=== PATIENT | female | born 1950 | race Caucasian/White ===

== ENCOUNTER 2018-06-02 08:40 | Day surgery (SDC) | payer MEDICARE, BC ==
[2018-06-02] MEDS ORDERED: Lactated Ringers 1,000 ML IV SCH (09:00)
[2018-06-02] MEDS ORDERED: Propofol 200 MG/20 ML SDV ONE (09:47)
[2018-06-02] MEDS ORDERED: fentaNYL 100 MCG/2 ML SDV ONE (09:47)
[2018-06-02] MEDS ORDERED: Midazolam 1 MG/ML 2 ML SDV ONE (09:47)
--- NOTE | 2018-06-02 13:53 | OR ---
DATE OF PROCEDURE: 06/02/2018 PREOPERATIVE DIAGNOSIS: Father had rectal cancer. POSTOPERATIVE DIAGNOSES: 1. Unremarkable colonoscopy. 2. Father had rectal cancer. PROCEDURE: Colonoscopy to the cecum. SURGEON: Austyn Renteria MD ANESTHESIA: IV anesthesia with monitored anesthesia care. INDICATION: This 68-year-old white female is referred for a colonoscopy. Her father had rectal cancer. She says her last colonoscopic exam was done about 10 years ago. She is scheduled to have a bladder repair at [facility], and they wanted her to have a colonoscopy before they do this. I counseled her for the procedure, including risks and alternatives, and she gave her informed consent to proceed. DESCRIPTION OF PROCEDURE: The patient was placed in the left lateral decubitus position. IV anesthesia was administered by the Anesthesia Service. Rectal exam showed no masses. The flexible video Olympus colonoscope was introduced through her anus, up her rectum and out her colon all the way to the cecum. Once the cecum was reached, the scope was slowly withdrawn, examining the mucosa throughout. No mucosal abnormalities were noted. The scope was retroflexed in the rectum with the distal rectum appearing unremarkable. The scope was straightened and removed. She tolerated the procedure well. Austyn Renteria MD /[id number] [email or web address]
== END 2018-06-02 13:15 | disposition home or self-care (01) ==
LOC: JP.SDS 08:40
PROVIDERS: ATTEND Surgery
DX: Z01.818 Encounter for other preprocedural examination (principal); E03.9 Hypothyroidism, unspecified; E78.5 Hyperlipidemia, unspecified; K21.9 Gastro-esophageal reflux disease without esophagitis; Z80.0 Family history of malignant neoplasm of digestive organs
CPT/HCPCS: 45378; J2250; J2704; J3010; J7120

== ENCOUNTER 2019-09-08 13:15 | Emergency (ER) | payer MEDICARE, BC ==
--- NOTE | 2019-09-08 14:22 | EDM.PDOC ---
ED HPI GENERAL MEDICAL PROBLEM - General Chief Complaint: Back Pain or Injury Stated Complaint: PAIN IN BACK AND THROUGHOUT ARMS Time Seen by Provider: 09/08/19 14:05 Source of Information: Reports: Patient, Old Records History Limitations: Reports: No Limitations - History of Present Illness INITIAL COMMENTS - FREE TEXT/NARRATIVE: 69 yo female has been having R upper back pain for several weeks. Nothing seems to bring on the pain, but massage by her does help. She has not been to the clinic for this and when she called today she was told to come to the ER. She tells me late in the history portion of her encounter that she has a FHx of CAD and she is concerned about this. There has been no SOB, diaphoresis, or nausea and exertion specifically does not make it worse. No increased pain with turning of her head or movement of her R shoulder. Coughing does not cause increased pain. She has no pain today at all. Dr. Humphreys is her provider. There was no injury that brought this on. Sometimes the pain is to the upper left back also. Onset: Gradual Duration: Week(s):, Resolved Prior to Arrival, Waxing/Waning Location: Reports: Back (R and sometimes L upper back) Quality: Reports: Dull Severity: Mild Improves with: Reports: Other (massage) Worsens with: Reports: Other (unknown) Context: Reports: Other (See HPI) Associated Symptoms: Denies: Chest Pain, Cough, Diaphoresis, Fever/Chills, Nausea/Vomiting, Rash, Shortness of Breath Treatments GEAR ROLLER: Reports: Other (see below) (massage, not today) - Related Data Allergies Allergy/AdvReac Type Severity Reaction Status Date / Time No Known Allergies Allergy Verified 09/08/19 13:42 Home Meds: Home Meds Levothyroxine [Sythroid] 100 mcg PO DAILY 06/23/16 [History] Aspirin [Children's Aspirin] 81 mg PO DAILY 05/31/18 [History] Fish Oil/[place]-3 Fatty Acids [Fish Oil 1,000 MG] 1,000 mg PO DAILY 05/31/18 [History] Past Medical History HEENT History: Reports: Cataract Cardiovascular History: Reports: High Cholesterol Gastrointestinal History: Reports: Chronic Constipation Genitourinary History: Reports: Other (See Below) Other Genitourinary History: fallen bladder will have surgery 2019 [employer] History: Reports: Musculoskeletal History: Reports: Other (See Below) Other Musculoskeletal History: L knee injury 09/18/18 Neurological History: Reports: None Psychiatric History: Reports: None Endocrine/Metabolic History: Reports: Hypothyroidism, Other (See Below) Other Endocrine/Metabolic History: graves disease Hematologic History: Reports: None Immunologic History: Reports: None Oncologic (Cancer) History: Reports: None Dermatologic History: Reports: None - Infectious Disease History Infectious Disease History: Reports: Chicken Pox - Past Surgical History Head Surgeries/Procedures: Reports: None HEENT Surgical History: Reports: Oral Surgery Cardiovascular Surgical History: Reports: None GI Surgical History: Reports: Colonoscopy Female Surgical History: Reports: None Endocrine Surgical History: Reports: None Musculoskeletal Surgical History: Reports: None Social & Family History - Tobacco Use Smoking Status *Q: Never Smoker - Caffeine Use Caffeine Use: Reports: None ED ROS GENERAL - Review of Systems Review Of Systems: See Below Constitutional: Reports: No Symptoms HEENT: Reports: No Symptoms Respiratory: Reports: No Symptoms Cardiovascular: Reports: No Symptoms Endocrine: Reports: No Symptoms GI/Abdominal: Reports: No Symptoms : Reports: No Symptoms Musculoskeletal: Reports: Other (Bilateral upper back pain, R>L) Skin: Reports: No Symptoms Neurological: Reports: No Symptoms ED EXAM, UPPER BACK/NECK PAIN - Physical Exam Exam: See Below Exam Limited By: No Limitations General Appearance: Alert, WD/WN, No Apparent Distress Eye Exam: Bilateral Eye: Normal Inspection Ears Exam: Normal External Exam, Normal Canal, Normal TMs, Hearing Loss, Other (L hearing aid). No: Hearing Grossly Normal Nose Exam: Normal Inspection, No Blood Throat/Mouth Exam: Normal Inspection, Normal Lips, Normal Oropharynx, Normal Voice, No Airway Compromise Head Exam: Atraumatic, Normocephalic Neck Exam: Non-Tender Cardiovascular/Respiratory: Regular Rate, Rhythm, No M/R/G, Normal Breath Sounds, No Respiratory Distress, Other (no chest wall pain) Back Exam: Normal Inspection, Full Range of Motion. No: CVA Tenderness (R), CVA Tenderness (L), Decreased Range of Motion, Muscle Spasm, Paraspinal Tenderness, Vertebral Tenderness Extremities: Normal Inspection, Normal Range of Motion, Non-Tender, No Pedal Edema, Other (no axillary tenderness). No: Pedal Edema Neurologic: tire buster II-XII nml As Tested, No Motor/Sensory Deficits, Alert, Normal Mood/Affect, Oriented x 3 Psychiatric: Normal Affect, Normal Mood Skin Exam: Normal Color, Warm/Dry Lymphatic: No Adenopathy. No: Axilla Node Tender (R), Axilla Node Tender (L) EKG INTERPRETATION EKG Date: 09/08/19 Time: 14:30 Rhythm: NSR Rate (Beats/Min): 69 [place]: Normal P-Wave: Present QRS: Normal ST-T: Normal QT: Normal Comparison: NA - No Prior EKG Course - Vital Signs Last Recorded V/S: Last Vital Signs Temp 36.9 C 09/08/19 13:48 Pulse 69 09/08/19 15:04 Resp 16 09/08/19 15:04 BP 176/91 H 09/08/19 15:04 Pulse Ox 96 09/08/19 15:04 - Orders/Labs/Meds Orders: Active Orders 24 hr Category Date Time Status EKG Documentation Completion [RC] ASDIRECTED Care 09/08/19 14:16 Active EKG 12 Lead [EK] Routine Ther 09/08/19 14:15 Ordered Labs: Laboratory Tests 09/08/19 Range/Units 14:22 Troponin I < 0.017 (0.000-0.056) ng/mL - Radiology Interpretation Free Text/Narrative:: CXR-neg Departure - Departure Time of Disposition: 15:14 Disposition: Home, Self-Care 01 Condition: Good Clinical Impression: Upper back pain - Discharge Information *PRESCRIPTION DRUG MONITORING PROGRAM REVIEWED*: Not Applicable *COPY OF PRESCRIPTION DRUG MONITORING REPORT IN PATIENT CARLOS EDUARDO: Not Applicable Referrals: Christopher Humphreys MD [Primary Care Provider] - Forms: ED Department Discharge Additional Instructions: Discuss having a cardiac stress done to further insure that you don't have heart disease. If your symptoms persist see Dr. Humphreys for further work up. Return as needed. Sepsis Event Note (ED) - Evaluation Sepsis Screening Result: No Definite Risk - Focused Exam Vital Signs: Vital Signs Temp Pulse Resp BP Pulse Ox 09/08/19 15:04 69 16 176/91 H 96 09/08/19 13:48 36.9 C 68 14 139/79 98 - My Orders Last 24 Hours: My Active Orders 09/08/19 14:15 EKG 12 Lead [EK] Routine 09/08/19 14:16 EKG Documentation Completion [RC] ASDIRECTED - Assessment/Plan Last 24 Hours: My Active Orders 09/08/19 14:15 EKG 12 Lead [EK] Routine 09/08/19 14:16 EKG Documentation Completion [RC] ASDIRECTED
--- NOTE | 2019-09-08 14:45 | CR ---
CHEST: 2 view CLINICAL HISTORY:Upper back pain COMPARISON:None FINDINGS: The heart size, pulmonary vascularity and hilar structures are normal. No infiltrate effusion or pneumothorax is seen. IMPRESSION: No acute cardiopulmonary process.
== END 2019-09-08 15:43 | disposition home or self-care (01) ==
LOC: JP.ED 13:15
DX: M54.6 Pain in thoracic spine (principal); E03.9 Hypothyroidism, unspecified; Z79.899 Other long term (current) drug therapy; Z79.82 Long term (current) use of aspirin
CPT/HCPCS: 36415; 71046; 71046-26; 84484; 93005; 93010; 99284-25

== ENCOUNTER 2025-02-05 12:29 | Emergency (ER) | payer MEDICARE, BC ==
[2025-02-05 13:40] LABS: BASOPHILS ABSOLUTE AUTO 0.04 K/uL (0.00-0.10); BASOPHILS PERCENT AUTO 0.7 % (0.1-1.3); EOSINOPHILS ABSOLUTE AUTO 0.07 K/uL (0.00-0.40); EOSINOPHILS PERCENT AUTO 1.2 % (0.0-5.4); IMMATURE GRAN PERCENT AUTO 0.2 % (0.0-0.7); LYMPHOCYTES ABSOLUTE AUTO 1.62 K/uL (0.8-3.3); LYMPHOCYTES PERCENT AUTO 27.1 % (11.4-47.7); MONOCYTES ABSOLUTE AUTO 0.41 K/uL (0.20-0.90); MONOCYTES PERCENT AUTO 6.9 % (3.3-12.6); NEUTROPHILS ABSOLUTE AUTO 3.82 K/uL (1.0-7.6); NEUTROPHILS PERCENT AUTO 63.9 % (40.0-78.1); PLATELET COUNT,PLT 165 K/uL (130-375); RED BLOOD CELL COUNT 4.69 M/uL (3.77-5.24); WHITE BLOOD CELL COUNT,WBC 6.0 K/uL (3.2-11.0)
[2025-02-05 13:41] LABS: IMMATURE GRAN ABSOLUTE AUTO 0.01 K/uL (0.00-0.23)
[2025-02-05 14:04] LABS: A/G RATIO 1.2 (1.2-2.2); ALANINE AMINOTRANSFERASE,ALT 50 U/L (12-78); ASPARTATE AMNIOTRANSFERASE,AST 90 U/L (15-37); BILIRUBIN TOTAL 1.5 mg/dL (0.2-1.0); BLOOD UREA NITROGEN,BUN 20 mg/dL (7-18); CARBON DIOXIDE,CO2 28 mmol/L (21-32); CHLORIDE,CL 103 mmol/L (100-108); CREATININE 1.1 mg/dL (0.6-1.0); EST CRCL DRUG DOSING (CG) 30.99 mL/min; ESTIMATED GFR 53 mL/min (>60); GLUCOSE RANDOM 109 mg/dL (74-106); POTASSIUM,K 4.1 mmol/L (3.6-5.2); PROTEIN TOTAL,TP 7.3 g/dL (6.4-8.2); SODIUM,NA 139 mmol/L (140-148)
[2025-02-05 14:26] LABS: APPEARANCE,URINE CLEAR (CLEAR); GLUCOSE,URINE NEGATIVE (NEGATIVE); OCCULT BLOOD,URINE NEGATIVE (NEGATIVE)
== END 2025-02-05 14:53 | disposition home or self-care (01) ==
LOC: JP.ED 12:29
DX: G30.0 Alzheimer's disease with early onset (principal); F02.C18 Dementia in other diseases classified elsewhere, severe, with other behavioral disturbance; E78.00 Pure hypercholesterolemia, unspecified; E03.9 Hypothyroidism, unspecified; Z87.891 Personal history of nicotine dependence; Z79.82 Long term (current) use of aspirin; Z79.890 Hormone replacement therapy; Z79.899 Other long term (current) drug therapy
CPT/HCPCS: 36415; 80053; 81003; 83605; 85025; 99284